=== PATIENT | female | born 1970 | race Caucasian/White ===

== ENCOUNTER → 2016-05-12 | Outpatient (CLI) | payer OTHER ==
[~2016-05-12] MED LIST: LISINOPRIL-HYDR1 TA1 PO; NORCO 325 MG-51 TAB PO; PERCOCET 325 MG1 TA4 PO; VOLTAREN75 M1 PO; ZANTAC 150150 MG PO
--- NOTE | 2016-05-14 06:36 | RADIOLOGY REPORT PS360 ---
DIG MAMM-DX UNI-RT W/CAD ORDERING PHYSICIAN : Everett Gray MD PATIENT AGE: 46 years GENDER: Female COMPARISON: Previous mammograms: INDICATION: Six-month follow-up density axillary right breast TECHNIQUE: Standard CC and MLO images were obtained. R2 CAD reviewed. FINDINGS: Low-density breast . Generalized fatty replacement minimal fibroglandular elements RIGHT BREAST: No new areas of concern on the right. Small 4 .5 mm area of subtle low-density nodularity deep lateral right breast on cc view is less evident than 2016. Suspect small intramammary lymph node given its. Low-density Remainder the right breast satisfactory. Patient may resume annual scheduled IMPRESSION: No areas of concern right breast. Patient may resume annual schedule BI-RADS CATEGORY: 2_Benign RECOMMENDED FOLLOWUP: 6M 6MONTH FOLLOW-UP (A letter has been sent to the patient regarding results of the study.)
== END ==
LOC: RAD 14:47
DX: R92.8 Other abnormal and inconclusive findings on diagnostic imaging of breast (principal)
CPT/HCPCS: G0206-RT

== ENCOUNTER 2017-01-12 09:35 | Day surgery (SDC) | payer OTHER ==
--- NOTE | 2017-01-12 11:19 | Operative Note ---
Upper GI Endoscopy Procedure date: 01/12/17 Date of : 72 Procedure:Upper GI Endoscopy Esophagogastroduodenoscopy with cold biopsies Indications: Mrs. Cohen is a 46-year-old female who is here for upper endoscopy secondary to dyspepsia. She has had midepigastric and periumbilical abdominal pain. She did have a positive H. pylori serum antibody and was treated. Her subsequent H. pylori breath testing was negative. The patient has had bloating, gassiness, belching, nausea, early satiety, heartburn and reflux. She reports a globus sensation but no dysphagia. She has been taking Protonix daily. She has some chronic constipation. She had laparoscopic cholecystectomy [address] Kale Mendez M.D[address] The patient had an appendectomy [address] Dinesh Harmon M.D. Performing Provider: Valeri Pearson MD Referring Provider: Dominga CORREIA Sedation: Fentanyl 200 mg IV/Versed 8 mg IV Procedure: Prior to the procedure, a history and physical exam was performed, and patients medications and allergies were reviewed. The risks and benefits of the procedure and the sedation options and risks were discussed with the patient. All questions were answered and informed consent was obtained. The patient was brought to the procedure room. Patient identification and proposed procedure were verified by the physician and the nurse. The patient was placed in a left lateral decubitus position and the scope was passed under direct vision. Throughout the procedure, the patient's blood pressure, pulse, and oxygen saturations were monitored continuously. The endoscope was introduced through the mouth, and advanced to the second part of duodenum. The upper GI endoscopy was accomplished without difficulty. The patient tolerated the procedure well. Findings: The scope was passed directly into the upper esophagus and advanced to the third portion of the duodenum. The post bulbar duodenum and duodenal bulb were normal with normal mucosa and conniventes. The scope was withdrawn through a normal duodenal bulb and pylorus into the stomach. There was some mild pylorospasm. There was bile reflux with moderate linear reactive gastritis of the antrum and body. The remainder of the antrum, body and fundus of the stomach were grossly normal. Upon retroflexion there was no hiatal hernia. 2 biopsies were taken in the antrum and along the lesser curvature for histology. The scope was then withdrawn into the esophagus. There was no evidence of reflux esophagitis or Petersen's. There were very faint distal esophageal varices. There were mild tertiary contractions and mild cricopharyngeal spasm. Immediate complications: None EBL (ml): 0 Impression: 1. Bile reflux with moderate linear reactive gastritis and pylorospasm 2. Nonerosive gastroesophageal reflux disease with mild esophageal dysmotility/ cricopharyngeal spasm 3. Faint grade 01 esophageal varices Recommendations: I do feel that the patient has functional dyspepsia and functional bowel disease with IBSconstipation. I will plan to initiate dietary measures, fiber bowel regimen and promotility therapy plus treatment for visceral sensitivity. I would consider diagnostic colonoscopy as well. Additionally, we will plan to evaluate her liver function. She did have blood work from May 1998 that showed moderately elevated alkaline phosphatase. I do wonder whether she has some chronic liver disease with moderate hepatic fibrosis. at [id number]
[2017-01-12 13:18] LABS: BUN 16 mg/dL (7-18); GFR (ESTIMATED) 54 ML/MIN (59-)
[2017-01-12 15:02] VITALS: BP 99/66
[2017-01-12 16:15] LABS: HEMOGLOBIN 12.7 g/dL (12.2-16.2); LYMPH # 3.1 K/mm3 (0.7-4.5)
[2017-01-13 08:41] LABS: Alpha-1-Antitrypsin 181 mg/dL (90-200); Iron 68 ug/dL (27-159); Iron Saturation 20 % (15-55); UIBC 269 ug/dL (131-425)
[2017-01-13 10:39] LABS: HBsAg Screen Negative (Negative); Hep A Ab, IgM Negative (Negative); Hep B Core Ab, IgM Negative (Negative); Hep C Virus Ab <0.1 (0.0-0.9)
[2017-01-13 14:39] LABS: Actin (Smooth Muscle) Antibody 8 Units (0-19); Mitochondrial (M2) Antibody <20.0 Units (0.0-20.0)
[2017-01-13 16:41] LABS: ACE 7 U/L (14-82)
[2017-01-13 18:36] LABS: Antinuclear Antibodies, IFA Negative (.)
[2017-01-15 08:49] LABS: ALT (SGPT) P5P 76 IU/L (0-40); Alpha 2-Macroglobulins, Qn 146 mg/dL (110-276); Apolipoprotein A-1 173 mg/dL (116-209); Bilirubin, Total 0.4 mg/dL (0.0-1.2); Fibrosis Score 0.08 (0.00-0.21); GGT 154 IU/L (0-60); Haptoglobin 268 mg/dL (34-200); Necroinflammat Activity Grade A1-A2 (.); Necroinflammat Activity Score 0.37 (0.00-0.17)
== END 2017-01-12 12:37 | disposition home or self-care (01) ==
LOC: SDC 09:35
PROVIDERS: Internal Medicine Gastroenterology
PROC: 0DB78ZX Excision of Stomach, Pylorus, Via Natural or Artificial Opening Endoscopic, Diagnostic (ICD-10-PCS; 2017-01-12)
PROC: 0DB68ZX Excision of Stomach, Via Natural or Artificial Opening Endoscopic, Diagnostic (ICD-10-PCS; principal; 2017-01-12 13:30)
DX: K30 Functional dyspepsia (principal); K58.1 Irritable bowel syndrome with constipation; K21.9 Gastro-esophageal reflux disease without esophagitis; K29.50 Unspecified chronic gastritis without bleeding; K31.3 Pylorospasm, not elsewhere classified; K22.4 Dyskinesia of esophagus; I85.00 Esophageal varices without bleeding; J39.2 Other diseases of pharynx; K76.6 Portal hypertension; M19.90 Unspecified osteoarthritis, unspecified site; Z79.890 Hormone replacement therapy; Z79.899 Other long term (current) drug therapy

== ENCOUNTER → 2017-03-27 | Outpatient (CLI) | payer OTHER ==
--- NOTE | 2017-03-28 09:52 | RADIOLOGY REPORT PS360 ---
MRI-C-SPINE W/O, MRI-3D RENDERING/MYELOGRAM Ordering Physician: Johanna Thompson APRN Patient Age: 46 years: Female HISTORY: CERVICAL NECK PAIN WITH EVIDENCE OF DISC DISEASE TECHNIQUE: Sagittal STIR, T1, T2, axial T1 and gradient echo. On 1.5T Siemens wide bore MRI. 3-D MR myelogram image set obtained & performed on MRI workstation. Additional sagittal thin section T2 weighted dataset obtained from this latter acquisition as well (---76 CPT) COMPARISON :None FINDINGS Vertebral bodies are intact with no compression fracture. . Normal alignment. . cranial cervical junction is normal . Slight reversal normal cervical curvature likely positional. Multilevel cervical spondylosis and degenerative changes superimposed uponModest volume underlying osseous spinal canal which further narrowing level specified below.. C2/3. Disc and cord normal. C3/4. Diffuse Posterior disc/osteophyte features indenting anterior aspect of thecal sac. Minor central disc protrusion associated. Uncovertebral joint hypertrophy at this level slightly more evident to the left.. These features combine yield borderline/minor central canal stenosis. AP dimension spinal canal on 9.5 mm C4/5.. Scant central disc bulge midline and just left of midline. Slightly indents thecal sac.l borderline canal stenosis C5-C6. Largest protrusion right paracentral at this level and continuing laterally yielding generous encroachment upon the right foramen. Mixed disc protrusion-the Soft disc protrusion component however extends posteriorly beyond the spurring here.. This feature significantly effaces and compresses the right anterior aspect of the cervical cord.. Moderate central canal stenosis. Generous right recess and foraminal encroachment C6/7. Mild degenerative disc space narrowing. Cervical spondylosis... Disc protrusion begins at midline but becomes most pronounced right paracentral & further lateral & encroach upon entry right foramen. The features minor flattening the anterior aspect of the cervical cord.. Disc becomes is follow-up rightward, where it is seen indenting the lateral right corner of of thecal sac and encroaching upon the right foramen... This is best seen on axial images. Overall there is mild central canal stenosis otherwise. C7/T1. Disc intact T1 T1-T2 disc intact T2/T3 disc intact. 3-D MRI myelogram image set nicely demonstrates the focal indentation upon the thecal sac to the right at C5-C6 in addition to diffuse anterior indentation the thecal sac at this level.At the C 6/7 level less pronounced anterior indentation of thecal sac also noted IMPRESSION Multi level Degenerative disc changes & cervical spondylosis: 1. C5-C6: Most Prominent Disc protrusion the right at C5-C6. . effaces right aspect of cervical cord at this level.. Along with Prominent right recess & foraminal encroachment.Central canal stenosis. 2. C6/7. Less pronounced far lateral rightward disc protrusion C6-C7.. Notable Right foraminal encroachment, & mild central canal stenosis 3. C3/4. Disc/osteophyte features mildly indenting anterior thecal sac, including mild central disc protrusion... Borderline canal stenosis
== END ==
LOC: RAD 14:30
DX: M50.90 Cervical disc disorder, unspecified, unspecified cervical region (principal)